=== PATIENT | female | born 1985 | race American Indian/Alaskan Native ===

== ENCOUNTER 2022-05-06 22:58 | Inpatient (IN) | payer OTHER ==
[2022-05-06] MEDS ORDERED: LACTATED RINGERS 1,000 ML ONE (23:38)
[2022-05-06] MEDS ORDERED: OXYTOCIN DRIP 30,000 MILLIUNITS/500 ML BAG IV ONE (23:39)
[2022-05-06] MEDS ORDERED: CARBOPROST TROMETHAMINE 250 MCG/1 ML INJ IM PRN (23:43)
[2022-05-06] MEDS ORDERED: ACETAMINOPHEN 325 MG TAB PO PRN (23:43)
[2022-05-06] MEDS ORDERED: METHYLERGONOVINE MALEATE 0.2 MG/ML VIAL IM PRN (23:43)
[2022-05-06] MEDS ORDERED: LOPERAMIDE 2 MG CAP PO PRN (23:43)
[2022-05-06] MEDS ORDERED: fentaNYL 100 MCG/2 ML INJ IV PRN (23:43)
[2022-05-06] MEDS ORDERED: LIDOCAINE (2%) 20 MG/1 ML VIAL 20 ML MDV INFILTRATI ONE (23:43)
[2022-05-06] MEDS ORDERED: BUTORPHANOL 2 MG/1 ML INJ IV PRN ×2 (23:43)
[2022-05-06] MEDS ORDERED: TERBUTALINE 1 MG/1 ML INJ SUB-Q PRN (23:43)
[2022-05-06] MEDS ORDERED: miSOPROStol 200 MCG TAB PR PRN (23:43)
[2022-05-06] MEDS ORDERED: OXYTOCIN 10 UNIT/1 ML INJ IM PRN (23:43)
[2022-05-06] MEDS ORDERED: MINERAL OIL 30 ML ORAL LIQD PO PRN (23:43)
[2022-05-06] MEDS ORDERED: ePHEDrine SULFATE 50 MG/1 ML INJ IV PRN (23:43)
[2022-05-06] MEDS ORDERED: OXYTOCIN DRIP 30 UNITS/500 ML BAG IV SCH ×2 (23:45)
[2022-05-06] MEDS ORDERED: LACTATED RINGERS 1,000 ML IV SCH (23:45)
[2022-05-06] MEDS ORDERED: fentaNYL 100 MCG/2 ML INJ IV ONE (23:55)
--- NOTE | 2022-05-07 00:01 | History and Physical Report ---
History of Present Illness Date of examination: 05/06/22 Date of admission: 05/06/2022 Chief complaint: I'm having contractions and my water broke. History of present illness: 36 Y/O presents to labor and delivery in active labor. Her water broke at about 2230. care at [facility]. Past History Past Medical History: no pertinent history Past Surgical History: no surgical history Family/Genetic History: none Social history: no significant social history - Obstetrical History Expected Date of Delivery: 05/05/22 Actual Gestation: 40 Week(s) 2 Day(s) : 2 Number of Living Children: 1 Medications and Allergies Allergies Allergy/AdvReac Type Severity Reaction Status Date / Time No Known Allergies Allergy Verified 12/08/13 19:26 Home Medications Medication Instructions Recorded Confirmed Last Taken Type Ferrous Sulfate [Feosol 325 MG tab] 325 mg PO BID #60 tablet 07/19/14 08/23/14 08/22/14 Rx Ibuprofen [Motrin 600 MG tab] 600 mg PO Q6HR #30 tablet 07/19/14 08/23/14 08/22/14 Rx Vit-Fe Fumar-FA [ 1 each PO QDAY #30 tablet 07/19/14 08/23/14 08/22/14 Rx Vitamin] Active Meds: Active Medications Acetaminophen (Acetaminophen 325 Mg Tab) 650 mg PO Q4H PRN PRN Reason: Pain, Mild (1-3) Butorphanol Tartrate (Butorphanol 2 Mg/1 Ml Inj) 1 mg IV Q2H PRN PRN Reason: Pain, Moderate(4-6) LABOR PAIN Butorphanol Tartrate (Butorphanol 2 Mg/1 Ml Inj) 2 mg IV Q2H PRN PRN Reason: Pain , Severe (7-10) Carboprost Tromethamine (Carboprost Tromethamine 250 Mcg/1 Ml Inj) 250 mcg IM ONCE PRN PRN Reason: Uterine Bleeding Ephedrine Sulfate (Ephedrine Sulfate 50 Mg/1 Ml Inj) 10 mg IV Q2M PRN PRN Reason: Hypotension Fentanyl (Fentanyl 100 Mcg/2 Ml Inj) 100 mcg IV Q2H PRN PRN Reason: Pain,Severe (7-10) LABOR PAIN Oxytocin/Sodium Chloride (Pitocin/Ns 30 Unit/500ml) 30 units in 500 mls @ 2 mls/hr IV TITR AYAD; Protocol Lactated Ringer's (Lactated Ringers) 1,000 mls @ 125 mls/hr IV DIRECT AYAD Oxytocin/Sodium Chloride (Pitocin/Ns 30 Unit/500ml) 30 units in 500 mls @ 40 mls/hr IV TITR AYAD; Protocol Loperamide HCl (Loperamide 2 Mg Cap) 2 mg PO ONCE PRN PRN Reason: give with Hemabate Methylergonovine Maleate (Methylergonovine Maleate 0.2 Mg/Ml Vial) 0.2 mg IM ONCE PRN PRN Reason: Uterine Bleeding Mineral Oil (Mineral Oil 30 Ml Oral Liqd) 30 ml PO QHS PRN PRN Reason: Constipation Misoprostol (Misoprostol 200 Mcg Tab) 800 mcg PA ONCE PRN PRN Reason: Uterine Bleeding Oxytocin (Oxytocin 10 Unit/1 Ml Inj) 10 unit IM ONCE PRN PRN Reason: Uterine Bleeding Terbutaline Sulfate (Terbutaline 1 Mg/1 Ml Inj) 0.25 mg SUB-Q ONCE PRN PRN Reason: Hyperstimulation/Hypertonicity Review of Systems All systems: negative - Vital Signs Vital signs: Vital Signs Pulse Pulse Ox 93 H 100 05/06/22 23:33 05/06/22 23:33 Temp Pulse Resp BP Pulse Ox 98.4 F 92 H 133/95 100 05/06/22 23:36 05/06/22 23:53 05/06/22 23:35 05/06/22 23:53 - Physical Exam Breasts: Positive: deferred Cardiovascular: Regular rate Lungs: Positive: Clear to auscultation Abdomen: Positive: soft Genitourinary (Female): Positive: normal external genitalia Vulva: both: normal Uterus: Positive: enlarged Deep Tendon Reflex Grade: Normal +2 - Obstetrical FHR: category 1 Uterine Contraction Monitor Mode: Palpation Cervical Dilatation: 8 Cervical Effacement Percentage: 90 station: +1 Uterine Contraction Pattern: Regular Uterine Contraction Intensity: Moderate Results All other labs normal. Assessment and Plan A: Active labor at 40.2 weeks P: Expect
[2022-05-07 00:58] LABS: Hematocrit 34.6 % (30.3-42.9); Hemoglobin 11.4 gm/dl (10.1-14.3); Mean Corpuscular HGB Conc 33 % (30-34); Mean Corpuscular Volume 84 fl (79-97); Platelet Count 256 K/mm3 (140-440); Red Cell Distribution Width 15.5 % (13.2-15.2)
[2022-05-07] MEDS ORDERED: HYDROCORTISONE 25 MG RECTAL SUPP PR PRN (01:28)
[2022-05-07] MEDS ORDERED: MAGNESIUM HYDROXIDE (MOM) ORAL LIQD UDC PO PRN (01:28)
[2022-05-07] MEDS ORDERED: oxyCODONE /ACETAMINOPHEN 5-325MG TAB PO PRN (01:28)
[2022-05-07] MEDS ORDERED: LANOLIN/ZINC/DIMETHICONE (LANSINOH) 7 GM TP PRN (01:28)
[2022-05-07] MEDS ORDERED: ACETAMINOPHEN 325 MG TAB PO PRN (01:28)
[2022-05-07] MEDS ORDERED: WITCH HAZEL/ GLYCERIN PAD TP PRN (01:28)
--- NOTE | 2022-05-07 01:28 | Procedure Note ---
OB Delivery Note - Delivery Date of Delivery: 05/07/22 Surgeon: GERRI MONTES Estimated blood loss: 100cc - Vaginal Delivery presentation: vertex Delivery position: OA Intrapartum events: none Delivery induction: none Delivery monitor: external FHT, external uterine Route of delivery: Delivery placenta: spontaneous Episiotomy: none Delivery laceration: none Anesthesia: intravenous Delivery comments: of a viable female on 05/07/2022 @ 0115 over intact perineum. Placenta 3VCI. 8/9. QBL 100cc - Infant A at 1 minute: 8 at 5 minutes: 9 Gender: Female
[2022-05-07] MEDS: IBUPROFEN 800 MG TAB PO SCH ×3 (05:17→17:55)
[2022-05-07 15:27] LABS: Hemoglobin 10.3 gm/dl (10.1-14.3)
[2022-05-08] MEDS: IBUPROFEN 800 MG TAB PO SCH ×4 (00:06→17:45)
--- NOTE | 2022-05-08 09:41 | Progress Note ---
Assessment and Plan PPD#1 doing well 1. Routine care and discharge pt home Subjective Date of service: 05/08/22 Principal diagnosis: PPD#1 Interval history: Pt has no complaints and is breast feeding and desires to go home today. vag bleed less than a period. Denies pelvic pain Objective - Constitutional Vitals: Vital Signs - 12hr 05/08/22 05/08/22 05/08/22 00:06 01:28 04:18 Temperature 98.1 F 97.7 F Pulse Rate 73 79 Respiratory 20 18 18 Rate Blood Pressure 122/86 110/78 O2 Sat by Pulse 97 99 Oximetry 05/08/22 05/08/22 05:44 08:20 Temperature 98.2 F Pulse Rate 72 Respiratory 20 20 Rate Blood Pressure 113/81 O2 Sat by Pulse 100 Oximetry General appearance: Present: no acute distress - Neck Neck: normal ROM - Respiratory Respiratory effort: normal - Cardiovascular Rhythm: regular Extremities: No edema - Gastrointestinal General gastrointestinal: Present: soft, non-tender - Genitourinary Female genitourinary: deferred - Integumentary Integumentary: warm, dry - Neurologic Neurologic: moves all extremities - Psychiatric Psychiatric: cooperative - Labs CBC & Chem 7: 05/07/22 15:03 Medications & Allergies - Medications Allergies/Adverse Reactions: Allergies No Known Allergies Allergy (Verified 12/08/13 19:26) Home Medications: Home Medications Medication Instructions Recorded Confirmed Last Taken Type Ferrous Sulfate [Feosol 325 MG tab] 325 mg PO BID #60 tablet 07/19/14 05/07/22 08/22/14 Rx Ibuprofen [Motrin 600 MG tab] 600 mg PO Q6HR #30 tablet 07/19/14 05/07/22 08/22/14 Rx Vit-Fe Fumar-FA [ 1 each PO QDAY #30 tablet 07/19/14 05/07/22 08/22/14 Rx Vitamin] Active Medications: Generic Name Dose Route Start Last Admin Trade Name Freq PRN Reason Stop Dose Admin Acetaminophen 650 mg 05/07/22 01:28 Acetaminophen 325 Mg Tab PO Q4H PRN Pain MILD(1-3)/Fever >100.5/ZAFAR Bisacodyl 10 mg 05/07/22 01:28 Bisacodyl 10 Mg Rect Supp RI BID PRN Constipation Hydrocortisone Acetate 25 mg 05/07/22 01:28 Hydrocortisone 25 Mg Rectal Supp RI BID PRN Hemorrhoids Ibuprofen 800 mg 05/07/22 02:00 05/08/22 05:44 Ibuprofen 800 Mg Tab PO 800 mg Q6H AYAD Administration Magnesium Hydroxide 30 ml 05/07/22 01:28 Magnesium Hydroxide (Mom) Oral Liqd Udc PO HS PRN Constipation Multi-Ingredient Ointment 1 applic 05/07/22 01:28 05/07/22 11:08 Lanolin/Zinc/Dimethicone (Lansinoh) 7 Gm TP 1 applic PRN PRN Administration Sore Nipples Oxycodone/Acetaminophen 1 tab 05/07/22 01:28 Oxycodone /Acetaminophen 5-325mg Tab PO Q6H PRN Pain, Moderate (4-6) Sodium Chloride 10 ml 05/07/22 02:00 Sodium Chloride 0.9% 10 Ml Flush Syringe IV PRN PRN LINE FLUSH Witch Paty/Glycerin 1 each 05/07/22 01:28 Witch Paty/ Glycerin Pad TP PRN PRN Hemorrhoid/cleansing/soothing
--- NOTE | 2022-05-08 09:42 | Discharge Summary ---
Providers - Providers Date of Admission: 05/07/22 01:15 Date of discharge: 05/08/22 Attending physician: CHAYO BARRERA Primary care physician: CHAYO BARRERA Hospitalization Reason for admission: IUP at term (with SROM) Episiotomy: none Laceration: none complications: none Discharge diagnosis: IUP at term delivered baby: female Hospital course: Term IUP with SROM admitted and had uncomplicated and course uneventful. Pt wanted to go home on PPD#1 and same done Disposition: 30 STILL A PATIENT Plan - Provider Discharge Summary Additional instructions: [] Smoking cessation referral if applicable(refer to patient education folder for contact #) [] Refer to [facility]'s [facility] Booklet Call your doctor immediately for: * Fever > 100.5 * Heavy vaginal bleeding ( >1 pad per hour) * Severe persistent headache * Shortness of breath * Reddened, hot, painful area to leg or breast * Drainage or odor from incision. * Keep incision clean and dry at all times and follow doctor's instructions regarding bathing/showering - Follow up plan Follow up: CHAYO BARRERA MD [Primary Care Provider] - 7 Days
[2022-05-08 16:17] VITALS: BP 128/87
== END 2022-05-08 18:45 | disposition home or self-care (01) | DRG 807 ==
LOC: TRG 22:58 → APU 23:00 → LD 23:32 → TRG 05-07 01:50 → OB 05-07 04:05
PROVIDERS: ADMIT Obstetrics & Gynecology; ATTEND Obstetrics & Gynecology
PROC: 10E0XZZ Delivery of Products of Conception, External Approach (ICD-10-PCS; principal; 2022-05-07)
DX: O62.3 Precipitate labor (principal); Z37.0 Single live birth; Z3A.40 40 weeks gestation of pregnancy; Z20.822 Contact with and (suspected) exposure to COVID-19
CPT/HCPCS: 36415; 85014; 85018; 85027; 86592; 86850; 86900; 86901; 96365; 96374; G0378; J2590; J3010; J7120; U0003